=== PATIENT | male | born 1955 | race Caucasian/White ===

== ENCOUNTER 2016-12-10 10:14 | Emergency (ER) | payer OTHER ==
[~2016-12-10] VITALS: Ht 162.6 cm; Wt 89.0 kg
[~2016-12-10 10:14] MED LIST: ALBU18HF INHALATION; BEN25 PO; BUS5 PO; BUSP10TA2 PO; CALC200T PO; CARI350T29 PO; CARV3.1260 PO; DOCU-144 PO; FLUT16SP17 NASAL; GLIM1TAB2 PO; ISOS30TA5 PO; LORA1TAB PO; LOSA50TA6 PO; NITR0.4T6 SL; ONDA4TAB96 PO; PANT40TA4 PO; SUCR1TAB56 PO; TRAZ100T15 PO; VENL150C PO
[2016-12-10 10:17] VITALS: Ht 162.6 cm; Wt 89.0 kg
== END 2016-12-10 12:20 | disposition left against medical advice (07) ==
LOC: FTE 10:14
DX: Z53.21 Procedure and treatment not carried out due to patient leaving prior to being seen by health care provider (principal)